=== PATIENT | female | born 1985 | race American Indian/Alaskan Native ===

== ENCOUNTER 2018-09-16 15:33 | Emergency (ER) | payer SELFPAY ==
--- NOTE | 2018-09-16 15:48 | Event Note ---
ED Screening Note Date of service: 09/16/18 Time: 15:48 ED Screening Note: This initial assessment/diagnostic orders/clinical plan/treatment(s) is/are subject to change based on patients health status, clinical progression and re- assessment by fellow clinical providers in the ED. Further treatment and workup at subsequent clinical providers discretion. Patient/guardian urged not to elope from the ED as their condition may be serious if not clinically assessed and managed. Initial orders include:
[2018-09-16 15:49] VITALS: BP 137/75
--- NOTE | 2018-09-16 15:52 | Emergency Department Report ---
Chief Complaint: Urogenital-Female Stated Complaint: FREQUENT URINATION - HPI History of Present Illness: 32 y/o female comes in for urination at night. Denies any dysuria , no vaginal discharge no abd pain. - Exam Vital Signs: Vital Signs 09/16/18 15:47 Temperature 98.1 F Pulse Rate 81 Respiratory 16 Rate Blood Pressure 137/75 O2 Sat by Pulse 100 Oximetry MSE screening note: Focused history and physical exam performed. 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
[2018-09-16 17:46] LABS: Bilirubin,Urine NEG (Negative); Blood,Urine SM (Negative); Color,Urine Yellow (Yellow); Mucus,Urine 3+ /HPF; Protein,Urine <15 mg/dL mg/dL (Negative); Urobilinogen,Urine < 2.0 mg/dL (<2.0)
== END 2018-09-16 16:05 | disposition left against medical advice (07) ==
LOC: ED 15:33
DX: R35.0 Frequency of micturition (principal); Z53.21 Procedure and treatment not carried out due to patient leaving prior to being seen by health care provider
CPT/HCPCS: 81001